=== PATIENT | male | born 1955 | race Caucasian/White ===

== ENCOUNTER 2022-05-03 09:18 | Emergency (ER) | payer MEDICAID, MEDICARE ==
[2022-05-03] MEDS ORDERED: KETOROLAC 60 MG/2 ML VIAL IM STA (09:42)
--- NOTE | 2022-05-03 10:13 | XRAY Report ---
PROCEDURE: Knee 3 View RT INDICATIONS: ATRAUMATIC KNEE PAIN TECHNIQUE: 3 views of the right knee(s) were acquired. COMPARISON: None. FINDINGS: Bones: No fractures or dislocations. No suspicious bony lesions. Tibial temo fixation is present. H ardware is intact. There is moderate medial and mild lateral arthritic narrowing. Soft tissues: No joint effusion. No suspicious soft tissue calcifications. IMPRESSION: Tibial temo fixation is intact. No acute osseous abnormality. Reviewed by: Shaniqua Pérez MD on 05/03/2022 10:11 AM PDT Approved by: Shaniqua Pérez MD on 05/03/2022 10:11 AM PDT Station ID: [id number]
--- NOTE | 2022-05-03 10:18 | ED Physician Documentation ---
History of Present Illness - Stated complaint Stated Complaint: RT HIP/KNEE PX - Chief complaint Chief Complaint: Ext Problem - History obtained from History obtained from: Patient - History of Present Illness Timing: How many days ago (4) - Additonal information Additional information: 66-year-old male with history of hip replacement 2 months ago presents by pr ivate vehicle for approximately 4 days of right knee pain. Patient states that when he is at rest it does not hurt, but when he bears weight it causes him aching discomfort that does not radiate. Triage note reports pain in the right hip, however patient states that this is chronic for him since his operation and unchanged from baseline. He has been using [id number] cream on his knee for pain relief. He is new to the area and does not have an orthopedic surgeon that he has establish care with here Denies fevers, chills, knee redness, knee swelling. States that he ambulates with a walker, this is at his baseline Review of Systems Ten Systems: 10 systems reviewed and negative Constitutional: denies: Fever, Fatigue Cardiac: denies: Chest pain / pressure, Pedal edema Musculoskeletal: reports: Joint pain (R knee), Pain with weight bearing. denies: Back pain, Joint swelling PD PAST MEDICAL HISTORY - Past Medical History Cardiovascular: Hypertension, High cholesterol Respiratory: COPD Endocrine/Autoimmune: None GI: Cirrhosis : None HEENT: None Psych: Depression, Anxiety Musculoskeletal: Osteoarthritis, Chronic back pain Derm: None - Past Surgical History Past Surgical History: No Ortho: Hip replacement, Other - Present Medications Home Medications: Ambulatory Orders Medication Instructions Recorded Confirmed Diclofenac Sodium [Voltaren 50 gm TP QID PRN #100 gm 05/03/22 Arthritis Pain] Meloxicam [Mobic] 7.5 mg PO BID PRN #20 tablet 05/03/22 amLODIPine [Norvasc] 10 mg PO DAILY 05/03/22 05/03/22 - Allergies Allergies/Adverse Reactions: Allergies Allergy/AdvReac Type Severity Reaction Status Date / Time codeine AdvReac Unknown Verified 05/03/22 09:48 - Social History Does the pt smoke?: Yes Smoking Status: Current every day smoker Does the pt drink ETOH?: No Does the pt have substance abuse?: Yes - Immunizations Immunizations are current?: Yes - POLST Patient has POLST: No PD ED PE NORMAL - General General: Alert and oriented X 3, No acute distress - HEENT HEENT: Atraumatic, PERRL, EOMI - Neck Neck: Supple, no meningeal sign, No bony TTP, No bruit - Cardiac Cardiac: RRR, No murmur - Respiratory Respiratory: No respiratory distress, Clear bilaterally - Abdomen Abdomen: Soft, Non tender, Non distended - Back Back: No CVA TTP, No spinal TTP - Derm Derm: Normal color, Warm and dry, No rash - Extremities Extremities: No deformity, No tenderness to palpate, Normal ROM s pain, No edema, No calf tenderness / cord, Other (TTP with weight bearing R knee. No erythema, no swelling, full ROM) - Neuro Neuro: Alert and oriented X 3, helmet hat puncher 2-12 intact, No motor deficit, No sensory deficit - Psych Psych: Normal mood, Normal affect Results - Vitals Vitals: Vital Signs - 24 hr 05/03/22 09:25 Temperature 36.5 C Heart Rate 77 Respiratory 18 Rate Blood Pressure 149/78 H O2 Saturation 100 Oxygen O2 Source Room air PD MEDICAL DECISION MAKING - ED course ED course: Patient presenting for right knee pain with weightbearing. When patient is placed in a stretcher he has full range of motion without pain. Question if the patient has developing arthritis in his right knee. He is ambulatory with a walker in the emergency department without difficulty. Patient states that he walks with a walker at baseline. X-rays negative for acute findings. Patient given a short course of anti-inflammatories and referral to the local orthopedic clinic. Patient is happy to know that he has no fractures in his knee and will follow-up as soon as he can with the orthopedic clinic. Departure - Departure Disposition: 01 Home, Self Care Clinical Impression: Arthritis Condition: Good Instructions: Arthritis, ANTI-INFLAMMATORY, General Prescriptions: Meloxicam [Mobic] 7.5 mg PO BID PRN #20 tablet PRN Reason: Pain Diclofenac Sodium [Voltaren Arthritis Pain] 50 gm TP QID PRN #100 gm PRN Reason: knee pain
[2022-05-03 10:28] VITALS: BP 130/90
== END 2022-05-03 10:28 | disposition home or self-care (01) ==
LOC: ED 09:18
DX: M17.11 Unilateral primary osteoarthritis, right knee (principal); I10 Essential (primary) hypertension; F17.200 Nicotine dependence, unspecified, uncomplicated
CPT/HCPCS: 96372; 99282; 99283

== ENCOUNTER 2022-05-08 13:21 | Emergency (ER) | payer MEDICARE ==
[2022-05-08] MEDS ORDERED: KETOROLAC 60 MG/2 ML VIAL IM STA (14:29)
--- NOTE | 2022-05-08 14:34 | ED Physician Documentation ---
History of Present Illness - Stated complaint Stated Complaint: HIP PX - Chief complaint Chief Complaint: Ext Problem - History obtained from History obtained from: Patient - History of Present Illness Timing: How many weeks ago (several) Pain level max: 0 Pain level now: 0 - Additonal information Additional information: Patient is a 66-year-old male who presents to the emergency department the right knee and thigh pain. This been ongoing since his hip replacement about a month and a half ago. Seen here previously and symptoms resolved with Toradol. He states that there was an issue that his prescriptions were not ready at [facility] in [place]. He is here requesting another dose of Toradol and for the prescriptions to be sent to the [facility] pharmacy. No falls. No trauma. No numbness or tingling. Worse with walking, better with rest. Does use a walker. Review of Systems Constitutional: denies: Fever, Chills GI: denies: Vomiting, Diarrhea Skin: denies: Rash Musculoskeletal: denies: Neck pain, Back pain Neurologic: denies: Focal weakness, Numbness PD PAST MEDICAL HISTORY - Past Medical History Cardiovascular: Hypertension, High cholesterol Respiratory: COPD Endocrine/Autoimmune: None GI: Cirrhosis : None HEENT: None Psych: Depression, Anxiety Musculoskeletal: Osteoarthritis, Chronic back pain Derm: None - Past Surgical History Past Surgical History: No Ortho: Hip replacement, Other - Present Medications Home Medications: Ambulatory Orders Medication Instructions Recorded Confirmed Diclofenac Sodium [Voltaren 50 gm TP QID PRN #100 gm 05/03/22 Arthritis Pain] Meloxicam [Mobic] 7.5 mg PO BID PRN #20 tablet 05/03/22 amLODIPine [Norvasc] 10 mg PO DAILY 05/03/22 05/03/22 Diclofenac Sodium [Arthritis Pain 4 gm TP BID PRN #1 tub 05/08/22 Reliever] Ketorolac [Toradol] 10 mg PO Q8H PRN #30 tablet 05/08/22 - Allergies Allergies/Adverse Reactions: Allergies Allergy/AdvReac Type Severity Reaction Status Date / Time codeine AdvReac Unknown Verified 05/08/22 13:35 - Social History Does the pt smoke?: Yes Smoking Status: Current every day smoker Does the pt drink ETOH?: No Does the pt have substance abuse?: Yes - Immunizations Immunizations are current?: Yes - POLST Patient has POLST: No PD ED PE NORMAL - Vitals Vital signs reviewed: Yes - General General: Alert and oriented X 3, No acute distress, Well developed/nourished - HEENT HEENT: PERRL, Moist mucous membranes - Neck Neck: Supple, no meningeal sign - Cardiac Cardiac: RRR, Strong equal pulses - Respiratory Respiratory: No respiratory distress, Clear bilaterally - Abdomen Abdomen: Soft, Non tender, Non distended - Derm Derm: Warm and dry - Extremities Extremities: No deformity, No tenderness to palpate, Normal ROM s pain, Other (No joint effusions. No evidence of infection. Normal skin) - Neuro Neuro: Alert and oriented X 3 - Psych Psych: Normal mood, Normal affect Results - Vitals Vitals: Vital Signs - 24 hr 05/08/22 13:28 Temperature 36.6 C Heart Rate 76 Respiratory 14 Rate Blood Pressure 116/89 H O2 Saturation 98 Oxygen O2 Source Room air PD MEDICAL DECISION MAKING - ED course Complexity details: reviewed results, re-evaluated patient, considered differential, d/w patient ED course: Patient was given Toradol and feels much better. We will also prescribe ketorolac orally for home as well as Voltaren gel. Patient counseled regarding signs and symptoms for which I believe and urgent re-evaluation would be necessary. Patient with good understanding of and agreement to plan and is comfortable going home at this time This document was made in part using voice recognition software. While efforts are made to proofread this document, sound alike and grammatical errors may occur. Departure - Departure Disposition: 01 Home, Self Care Clinical Impression: Arthritis Leg pain Qualifiers: Laterality: right Qualified Code(s): M79.604 - Pain in right leg Condition: Good Instructions: ED Degenerative Joint Disease Follow-Up: your,doctor in 1 week [Other] Prescriptions: Diclofenac Sodium [Arthritis Pain Reliever] 4 gm TP BID PRN #1 tub PRN Reason: knee pain Ketorolac [Toradol] 10 mg PO Q8H PRN #30 tablet PRN Reason: leg pain Comments: Your prescriptions were sent to the [facility] pharmacy. Please follow-up with your doctor for further care. Return if you worsen.
[2022-05-08 14:41] VITALS: BP 120/84
== END 2022-05-08 14:41 | disposition home or self-care (01) ==
LOC: ED 13:21
DX: M25.561 Pain in right knee (principal); M19.90 Unspecified osteoarthritis, unspecified site; I10 Essential (primary) hypertension; F17.200 Nicotine dependence, unspecified, uncomplicated
CPT/HCPCS: 96372; 99282; 99283